=== PATIENT | female | born 1955 | race Caucasian/White ===

== ENCOUNTER 2019-07-01 10:10 | Emergency (ER) | payer MEDICARE, SELFPAY ==
[2019-07-01 10:17] VITALS: BP 159/78; PULSE 83; RESP 16; TEMP 35.5; O2SAT 97
--- NOTE | 2019-07-01 10:32 | ED.FEMALEGU ---
HPI - Female Genitourinary General Chief complaint: Urogenital-Female Stated complaint: uti Time Seen by Provider: 07/01/19 10:32 Source: patient and RN notes reviewed History of Present Illness HPI Narrative: Patient is a 63-year-old female presents the urgent care with complaints of a possible UTI. Patient states her symptoms of dysuria, frequency, urgency started approximately 3 days ago. Patient states that she has been increasing her water intake and taking ibuprofen. Patient denies of any fevers, nausea, vomiting. States that she has had some suprapubic pressure. No other acute complaints. No acute distress noted. Patient read the plan of care. Related Data Home Medications Medication Instructions Recorded Confirmed buspirone 5 mg PO BID 03/10/19 07/01/19 escitalopram oxalate 10 mg PO DAILY 03/10/19 07/01/19 insulin glargine [Lantus Solostar 20 unit SUBCUT BID 03/10/19 07/01/19 U-100 Insulin] lovastatin 20 mg PO DAILY 03/10/19 07/01/19 metformin 1,000 mg PO BID 03/10/19 07/01/19 metoprolol tartrate 100 mg PO Q12H 03/10/19 07/01/19 Allergies Allergy/AdvReac Type Severity Reaction Status Date / Time vancomycin Allergy Intermediate Hives / Verified 07/01/19 10:33 Red Face iodine Allergy Unknown Rash Verified 07/01/19 10:33 Review of Systems Review of Systems: Narrative: CONSTITUTIONAL: Denies fever, chills, or sweats. EYES: Denies visual changes, redness, or discharge. ENT: Denies rhinorrhea, congestion, sore throat, or otalgia. CARDIOVASCULAR: Denies chest pain, palpitations, or edema. RESPIRATORY: Denies cough or dyspnea. GASTROINTESTINAL: Denies abdominal pain, nausea, vomiting, or diarrhea. GENITOURINARY: Reports of frequency, urgency, dysuria and suprapubic pressure SKIN: Denies rash or itching. MUSCULOSKELETAL: Denies back pain, joint pain, or myalgia. NEUROLOGIC: Denies headache, numbness, or weakness. All other systems reviewed are negative, except as documented in HPI. PMFSH Comments At the time of my signature, I reviewed and agree with the nursing past medical, surgical, social, and family history. There is no relevant family history pertinent to the patient complaint. Exam Narrative: Exam Narrative: GENERAL: This is a well-nourished, well-developed patient, in no apparent distress. HEAD: normocephalic, atraumatic. EYES: PERRL. Sclera clear/white. Vision is grossly intact. EARS: External ears normal NOSE: External nose normal with no obvious nasal discharge THROAT: Mucous membranes moist NECK: Neck supple CARDIOVASCULAR: Regular rate and rhythm without murmurs, gallops, or rubs. RESPIRATORY: Clear to auscultation. Breath sounds equal bilaterally. No wheezes, rales, or rhonchi. GASTROINTESTINAL: Abdomen soft, mild suprapubic pressure/tenderness, nondistended. SKIN: warm, intact with no suspicious lesions or rash, good texture and turgor. NEURO: awake, alert, and oriented to person, place and time. There were no obvious focal neurologic abnormalities. EXTREMITIES: No clubbing, cyanosis, or edema. BACK: Mild bilateral CVA tenderness Course Vital Signs Vital signs: Vital Signs Temperature 96 F L 07/01/19 10:17 Pulse Rate 83 07/01/19 10:17 Respiratory Rate 16 07/01/19 10:17 Blood Pressure 159/78 H 07/01/19 10:17 Pulse Oximetry 97 07/01/19 10:17 Temperature 96 F L 07/01/19 10:17 Pulse Rate 83 07/01/19 10:17 Respiratory Rate 16 07/01/19 10:17 Blood Pressure 159/78 H 07/01/19 10:17 Pulse Oximetry 97 07/01/19 10:17 Reviewed?patient is informed that they may have pre-hypertension or hypertension based on a blood pressure reading in the department. I recommend the patient call the primary care provider listed on their discharge instructions or a physician of their choice this week to arrange follow-up for further evaluation of possible pre-hypertension or hypertension. MDM - Female Genitourinary MDM Narrative Medical decision making narrative: Reviewed lab
== END 2019-07-01 10:50 | disposition home or self-care (01) ==
PROVIDERS: Emergency Provider Nurse Practitioner Family; PCP Family Medicine
DX: N39.0 Urinary tract infection, site not specified (principal); I10 Essential (primary) hypertension; K21.9 Gastro-esophageal reflux disease without esophagitis; E11.9 Type 2 diabetes mellitus without complications; F41.9 Anxiety disorder, unspecified; F32.9 Major depressive disorder, single episode, unspecified
CPT/HCPCS: 81003; 87086; 87088; 99213; G0463

== ENCOUNTER 2019-10-20 13:42 | Emergency (ER) | payer MEDICARE, SELFPAY ==
--- NOTE | 2019-10-20 13:52 | ED.FEMALEGU ---
HPI - Female Genitourinary General Chief complaint: Urogenital-Female Stated complaint: uti Time Seen by Provider: 10/20/19 13:52 Source: patient and RN notes reviewed History of Present Illness HPI Narrative: Patient is 64-year-old female who presents the urgent care with complaints of dysuria, urgency, frequency, suprapubic pressure and right flank pain. Patient states that her symptoms started approximately 1 week ago and she does have a history of kidney stones and stent placement. Patient states that she is supposed to be following up with urologist but is waiting on her primary care doctors referral. Patient denies of any known blood in the urine, fever, nausea, vomiting. States that she has used Azo with mild improvements. Patient was seen in our facility in June with the exact same symptoms, and urine culture was negative at that time. No other acute complaints. No acute distress noted. Patient read the plan of care. Related Data Home Medications Medication Instructions Recorded Confirmed buspirone 5 mg PO BID 03/10/19 07/01/19 escitalopram oxalate 10 mg PO DAILY 03/10/19 07/01/19 insulin glargine [Lantus Solostar 20 unit SUBCUT BID 03/10/19 07/01/19 U-100 Insulin] lovastatin 20 mg PO DAILY 03/10/19 07/01/19 metformin 1,000 mg PO BID 03/10/19 07/01/19 metoprolol tartrate 100 mg PO Q12H 03/10/19 07/01/19 Allergies Allergy/AdvReac Type Severity Reaction Status Date / Time vancomycin Allergy Intermediate Hives / Verified 10/20/19 14:01 Red Face iodine Allergy Unknown Rash Verified 10/20/19 14:01 Review of Systems Review of Systems: Narrative: CONSTITUTIONAL: Denies fever, chills, or sweats. EYES: Denies visual changes, redness, or discharge. ENT: Denies rhinorrhea, congestion, sore throat, or otalgia. CARDIOVASCULAR: Denies chest pain, palpitations, or edema. RESPIRATORY: Denies cough or dyspnea. GASTROINTESTINAL: Denies abdominal pain, nausea, vomiting, or diarrhea. GENITOURINARY: Reports of urgency, frequency, dysuria, suprapubic pressure SKIN: Denies rash or itching. MUSCULOSKELETAL: Reports of right flank pain NEUROLOGIC: Denies headache, numbness, or weakness. All other systems reviewed are negative, except as documented in HPI. PMFSH Comments At the time of my signature, I reviewed and agree with the nursing past medical, surgical, social, and family history. There is no relevant family history pertinent to the patient complaint. Exam Narrative: Exam Narrative: GENERAL: This is a well-nourished, well-developed patient, in no apparent distress. HEAD: normocephalic, atraumatic. EYES: PERRL. Sclera clear/white. Vision is grossly intact. EARS: External ears normal NOSE: External nose normal with no obvious nasal discharge, nares without redness, no rhinorrhea. THROAT: Mucous membranes moist NECK: Neck supple GASTROINTESTINAL: Abdomen soft, mild suprapubic tenderness/pressure, nondistended. SKIN: warm, intact with no suspicious lesions or rash, good texture and turgor. NEURO: awake, alert, and oriented to person, place and time. There were no obvious focal neurologic abnormalities. EXTREMITIES: No clubbing, cyanosis, or edema. BACK: Mild bilateral CVA tenderness Course Vital Signs Vital signs: Vital Signs Temperature 97.3 F L 10/20/19 13:55 Pulse Rate 101 H 10/20/19 13:55 Respiratory Rate 16 10/20/19 13:55 Blood Pressure 153/55 H 10/20/19 13:55 Pulse Oximetry 98 10/20/19 13:55 Temperature 97.3 F L 10/20/19 13:55 Pulse Rate 101 H 10/20/19 13:55 Respiratory Rate 16 10/20/19 13:55 Blood Pressure 153/55 H 10/20/19 13:55 Pulse Oximetry 98 10/20/19 13:55 Reviewed?patient is informed that they may have pre-hypertension or hypertension based on a blood pressure reading in the department. I recommend the patient call the primary care provider listed on their discharge instructions or a physician of their choice this week to arrange follow-up for further evaluation of p
[2019-10-20 13:55] VITALS: BP 153/55; PULSE 101; RESP 16; TEMP 36.3; O2SAT 98
== END 2019-10-20 14:25 | disposition home or self-care (01) ==
PROVIDERS: Emergency Provider Nurse Practitioner Family; PCP Family Medicine
DX: R30.0 Dysuria (principal); I10 Essential (primary) hypertension; E11.9 Type 2 diabetes mellitus without complications; Z90.711 Acquired absence of uterus with remaining cervical stump; F41.9 Anxiety disorder, unspecified; F32.9 Major depressive disorder, single episode, unspecified
CPT/HCPCS: 81003; 87077; 87086; 87088; 87186; 99213; G0463

== ENCOUNTER 2020-07-21 13:19 | Emergency (ER) | payer MEDICARE, SELFPAY ==
[2020-07-21 13:46] VITALS: BP 159/64; PULSE 84; RESP 20; TEMP 36.2; O2SAT 96
--- NOTE | 2020-07-21 14:22 | ED.FEMALEGU ---
HPI - Female Genitourinary General Chief complaint: Urogenital-Female Stated complaint: Poss UTI Time Seen by Provider: 07/21/20 14:14 Source: patient and RN notes reviewed Mode of arrival: ambulatory Limitations: no limitations History of Present Illness HPI Narrative: Patient presents today complaining of a 3 to 4-day history of lower abdominal discomfort, low back pain, urinary frequency, dysuria, and nausea. Denies hematuria, fever, vomiting. She has not tried any [id number] treatment prior to arrival. No recent antibiotic use. MD elicited complaint: dysuria Related Data Home Medications Medication Instructions Recorded Confirmed buspirone 5 mg PO DAILY 03/10/19 10/20/19 escitalopram oxalate 10 mg PO DAILY 03/10/19 07/21/20 insulin glargine [Lantus Solostar 20 unit SUBCUT BID 03/10/19 07/21/20 U-100 Insulin] lovastatin 20 mg PO DAILY 03/10/19 07/21/20 metformin 1,000 mg PO BID 03/10/19 07/21/20 metoprolol tartrate 100 mg PO Q12H 03/10/19 07/21/20 Allergies Allergy/AdvReac Type Severity Reaction Status Date / Time vancomycin Allergy Intermediate Hives / Verified 07/21/20 14:23 Red Face iodine Allergy Unknown Rash Verified 07/21/20 14:23 nitrofurantoin AdvReac Diarrhea Verified 07/21/20 14:23 [From Macrobid] Review of Systems Review of Systems: Narrative: CONSTITUTIONAL: Denies body aches, fever, chills, or sweats. EYES: Denies visual changes, redness, or discharge. ENT: Denies rhinorrhea, congestion, sore throat, or otalgia. CARDIOVASCULAR: Denies chest pain, palpitations, or edema. RESPIRATORY: Denies cough or dyspnea. GASTROINTESTINAL: Denies abdominal pain, vomiting, or diarrhea.+ Nausea GENITOURINARY: + Dysuria, frequency, lower abdominal discomfort SKIN: Denies rash, itching, or wounds. MUSCULOSKELETAL: Denies joint pain, or myalgia. + Low back pain NEUROLOGIC: Denies headache, numbness, tingling, or weakness. PSYCH: Denies depression or anxiety. FORMERLY [facility] Past Medical History Medical History (Updated 07/21/20 @ 14:28 by Leydi Arriola, [employer], ) Anxiety Depression Diabetes GERD (gastroesophageal reflux disease) Kidney stones Tachycardia Surgical History Surgical History (Updated 07/21/20 @ 14:26 by CHERYL Wynn, ) History of cholecystectomy History of partial hysterectomy Hx of tonsillectomy Comments At time of signature, I have reviewed and agree with nursing past medical, surgical, social and family history unless otherwise noted. Please see nursing chart for further information. There is no relevant family history pertinent to the presenting complaint Exam Narrative: Exam Narrative: GENERAL: Well-appearing, well-nourished, and in no acute distress. HEAD: Normocephalic, atraumatic. EYES: EOMI. No redness or drainage. Conjunctivae normal. ENT: Mucous membranes pink and moist. NECK: Normal AROM. CHEST: No respiratory distress. Clear to auscultation. HEART: Regular rate and rhythm. No murmur appreciated. Normal peripheral pulses. ABDOMEN: Soft, nondistended, normal active bowel sounds. + Suprapubic tenderness MUSCULOSKELETAL: No bony tenderness. EXTREMITIES: Normal range of motion. No edema. SKIN: Warm, dry, no rash. Capillary refill normal. Normal skin turgor. NEURO: No focal deficits. Alert and oriented x3. Gait steady. PSYCH: Normal affect. No signs of depression or anxiety. Course Vital Signs Vital signs: Vital Signs Temperature 97.2 F L 07/21/20 13:46 Pulse Rate 84 07/21/20 13:46 Respiratory Rate 20 07/21/20 13:46 Blood Pressure 159/64 H 07/21/20 13:46 Pulse Oximetry 96 07/21/20 13:46 Temperature 97.2 F L 07/21/20 13:46 Pulse Rate 84 07/21/20 13:46 Respiratory Rate 20 07/21/20 13:46 Blood Pressure 159/64 H 07/21/20 13:46 Pulse Oximetry 96 07/21/20 13:46 Reviewed. Pt has been instructed to follow up with her PCP regarding her elevated blood pressure today. MDM - Female Genitourinary Differentia
== END 2020-07-21 14:39 | disposition home or self-care (01) ==
PROVIDERS: Emergency Provider Nurse Practitioner; PCP Family Medicine
DX: N30.01 Acute cystitis with hematuria (principal); B96.20 Unspecified Escherichia coli [E. coli] as the cause of diseases classified elsewhere; F32.9 Major depressive disorder, single episode, unspecified; F41.9 Anxiety disorder, unspecified; E11.9 Type 2 diabetes mellitus without complications; K21.9 Gastro-esophageal reflux disease without esophagitis; Z90.711 Acquired absence of uterus with remaining cervical stump
CPT/HCPCS: 81003; 87077; 87086; 87088; 87186; 99213; G0463

== ENCOUNTER 2020-09-14 13:58 | Emergency (ER) | payer MEDICARE, SELFPAY ==
--- NOTE | 2020-09-14 14:02 | ED.FEMALEGU ---
HPI - Female Genitourinary General Chief complaint: Urogenital-Female Stated complaint: Possiblel UTI/Pain in right Arm and Shoulder Time Seen by Provider: 09/14/20 14:02 Source: patient and RN notes reviewed History of Present Illness HPI Narrative: Patient is a 64-year-old female who presents the urgent care with complaints of a recurring UTI. Patient states symptoms have been ongoing for the last 2 to 3 days with burning with urination, urinary frequency, urgency and suprapubic pressure. Patient states she all over just does not feel well . Patient had a UTI in July was placed on Keflex and then changed to Bactrim due to a culture results. Patient states she never thinks it fully went away after the medication . Patient denies of any fevers, abdominal pain, vomiting. Also reports of some chronic right arm pain after a fall. Patient is followed up with an orthopedic and has had an MRI and is currently on naproxen for the pain. Patient states she will follow up with her orthopedic regarding her chronic pain and wants to be seen for her UTI . No other acute complaints. No acute distress noted. Patient aware of the plan of care. Some parts of this dictation were generated by voice recognition software and may contain typographical and/or grammatical inaccuracies. Related Data Home Medications Medication Instructions Recorded Confirmed buspirone 5 mg PO DAILY 03/10/19 09/14/20 escitalopram oxalate 10 mg PO DAILY 03/10/19 09/14/20 insulin glargine [Lantus Solostar 20 unit SUBCUT BID 03/10/19 09/14/20 U-100 Insulin] lovastatin 20 mg PO DAILY 03/10/19 09/14/20 metformin 1,000 mg PO BID 03/10/19 09/14/20 metoprolol tartrate 100 mg PO Q12H 03/10/19 09/14/20 Allergies Allergy/AdvReac Type Severity Reaction Status Date / Time vancomycin Allergy Intermediate Hives / Verified 09/14/20 14:13 Red Face iodine Allergy Unknown Rash Verified 09/14/20 14:13 nitrofurantoin AdvReac Diarrhea Verified 09/14/20 14:13 [From Macrobid] Review of Systems Review of Systems: Narrative: CONSTITUTIONAL: Denies fever, chills, or sweats. EYES: Denies visual changes, redness, or discharge. ENT: Denies rhinorrhea, congestion, sore throat, or otalgia. CARDIOVASCULAR: Denies chest pain, palpitations, or edema. RESPIRATORY: Denies cough or dyspnea. GASTROINTESTINAL: Denies abdominal pain, nausea, vomiting, or diarrhea. GENITOURINARY: Reports of dysuria, urinary frequency, urgency, suprapubic pressure SKIN: Denies rash or itching. MUSCULOSKELETAL: Denies back pain, joint pain NEUROLOGIC: Denies headache, numbness, or weakness. All other systems reviewed are negative, except as documented in HPI. [facility] Past Medical History Medical History (Updated 09/14/20 @ 14:30 by VALDO SilverP) Anxiety Depression Diabetes GERD (gastroesophageal reflux disease) Kidney stones Tachycardia Surgical History Surgical History (Updated 07/21/20 @ 14:26 by Leydi Arriola, CHERYL, ) History of cholecystectomy History of partial hysterectomy Hx of tonsillectomy Comments At the time of my signature, I reviewed and agree with the nursing past medical, surgical, social, and family history. There is no relevant family history pertinent to the patient complaint. Exam Narrative: Exam Narrative: GENERAL: This is a well-nourished, well-developed patient, in no apparent distress. HEAD: normocephalic, atraumatic. EYES: PERRL. Sclera clear/white. Vision is grossly intact. EARS: External ears normal NOSE: External nose normal with no obvious nasal discharge, nares without redness, no rhinorrhea. THROAT: Mucous membranes moist NECK: Neck supple CARDIOVASCULAR: Regular rate and rhythm without murmurs, gallops, or rubs. RESPIRATORY: Clear to auscultation. Breath sounds equal bilaterally. No wheezes, rales, or rhonchi. SKIN: warm, intact with no suspicious lesions or rash, good texture and turgor. NEURO: awake, alert, and oriented to person, francisca
[2020-09-14 14:05] VITALS: BP 172/63; PULSE 95; RESP 16; TEMP 36.7; O2SAT 97
[2020-09-14 14:14] VITALS: BP 172/63; PULSE 95; RESP 16; TEMP 36.7; O2SAT 97
== END 2020-09-14 14:39 | disposition home or self-care (01) ==
PROVIDERS: Emergency Provider Nurse Practitioner Family; PCP Family Medicine
DX: N39.0 Urinary tract infection, site not specified (principal); F41.9 Anxiety disorder, unspecified; F32.9 Major depressive disorder, single episode, unspecified; E11.9 Type 2 diabetes mellitus without complications; K21.9 Gastro-esophageal reflux disease without esophagitis; Z87.442 Personal history of urinary calculi; Z79.4 Long term (current) use of insulin; R03.0 Elevated blood-pressure reading, without diagnosis of hypertension
CPT/HCPCS: 81003; 87077; 87086; 87088; 87186; 99213; G0463

== ENCOUNTER 2021-02-28 08:55 | Emergency (ER) | payer MEDICARE, SELFPAY ==
[2021-02-28 09:00] VITALS: BP 152/56; PULSE 90; RESP 20; TEMP 36.6; O2SAT 96
--- NOTE | 2021-02-28 09:19 | ED.FEMALEGU ---
HPI - Female Genitourinary General Chief complaint: Urogenital-Female Stated complaint: UTI Time Seen by Provider: 02/28/21 09:19 Source: patient, RN notes reviewed and old records reviewed Mode of arrival: ambulatory Limitations: no limitations History of Present Illness HPI Narrative: 65-year-old female presents to the [facility] with complaints of UTI. Has a history of chronic UTIs. Patient is diabetic. Was seen here couple months ago. Patient states that she has an appointment with her primary care provider and is requesting a referral to a urologist for the chronic UTIs. Her primary care appointment is March 09 per patient. MD elicited complaint: UTI Related Data Home Medications Medication Instructions Recorded Confirmed buspirone 5 mg PO DAILY 03/10/19 02/28/21 escitalopram oxalate 10 mg PO DAILY 03/10/19 02/28/21 insulin glargine [Lantus Solostar 20 unit SUBCUT BID 03/10/19 02/28/21 U-100 Insulin] lovastatin 20 mg PO DAILY 03/10/19 02/28/21 metformin 1,000 mg PO BID 03/10/19 02/28/21 metoprolol tartrate 100 mg PO Q12H 03/10/19 02/28/21 Allergies Allergy/AdvReac Type Severity Reaction Status Date / Time vancomycin Allergy Intermediate Hives / Verified 02/28/21 09:26 Red Face iodine Allergy Unknown Rash Verified 02/28/21 09:26 nitrofurantoin AdvReac Diarrhea Verified 02/28/21 09:26 [From Macrobid] Review of Systems Constitutional: Constitutional: Reports as per HPI Eyes: Eyes: Reports no additional eye complaints ENT: Reports system reviewed and no additional complaints, except as documented Cardiovascular: Cardiovascular: Reports no additional cardiovascular complaints Respiratory: Respiratory: Reports no additional respiratory complaints Gastrointestinal: Gastrointestinal: Reports no additional gastrointestinal complaints, Denies abdominal pain, Denies diarrhea, Denies nausea and Denies vomiting Genitourinary: Genitourinary: Reports as per HPI, Reports nocturia, Reports dysuria, Denies flank pain and Denies urinary incontinence Musculoskeletal: Musculoskeletal: Reports no additional musculoskeletal complaints Integumentary/Breasts: Skin/Breast: Reports system reviewed and no additional complaints, except as docu Neurologic: Reports system reviewed and no additional complaints, except as documented Psychiatric: Psychiatric: Reports no additional psychiatric complaints Allergic/Immunologic: Allergic/Immunologic: Reports no additional allergic/immunologic complaints [facility] Past Medical History Medical History (Updated 02/28/21 @ 09:28 by Roshni Mason) Anxiety Chronic UTI Depression Diabetes GERD (gastroesophageal reflux disease) Kidney stones Tachycardia Surgical History Surgical History History of cholecystectomy History of partial hysterectomy Hx of tonsillectomy Social History Social History (Updated 02/28/21 @ 09:25 by Roshni Mason) Gender identity (if verbalized by the patient): Female Comments At the time of my signature, I reviewed and agree with the nursing past medical, surgical, social, and family history. There is no relevant family history pertinent to the patient complaint. Exam Const: General: healthy appearing, no acute distress and alert Nutritional Appearance: obese morbidly obese Orientation/consciousness: patient oriented x3 HENMT: Head: normal to inspection Eyes: Pupils: Equal, round and reactive pupils present Neck: Neck: normal visual inspection, no lymphadenopathy and no meningeal signs Chest: Chest palpation & inspection: normal inspection of the chest Resp: Effort & Inspection: normal respiratory effort Auscultation: clear to auscultation bilaterally Cardio: Rate: regular rate Rhythm: regular rhythm GI: GI Palp: Yes Soft to palpation and No Tenderness to palpation present (GI) : General: Yes no CVA tenderness Back/Spine/Pelvis: Back: no CVA tenderness Back/spin
== END 2021-02-28 09:30 | disposition home or self-care (01) ==
PROVIDERS: Emergency Provider Nurse Practitioner; PCP Family Medicine
DX: N00.1 Acute nephritic syndrome with focal and segmental glomerular lesions (principal); E11.9 Type 2 diabetes mellitus without complications; K21.9 Gastro-esophageal reflux disease without esophagitis; F41.9 Anxiety disorder, unspecified; F32.9 Major depressive disorder, single episode, unspecified; Z79.4 Long term (current) use of insulin; Z79.84 Long term (current) use of oral hypoglycemic drugs; Z90.711 Acquired absence of uterus with remaining cervical stump
CPT/HCPCS: 81003; 87077; 87086; 87186; 99213; G0463

== ENCOUNTER 2021-12-12 10:54 | Emergency (ER) | payer MEDICARE, SELFPAY ==
[2021-12-12 11:06] VITALS: BP 168/74; PULSE 84; RESP 20; TEMP 36.4; O2SAT 97
[2021-12-12 11:45] LABS: Glucose Point of Care > 500 mg/dl (65-105)
--- NOTE | 2021-12-12 11:48 | ED.FEMALEGU ---
HPI - Female Genitourinary General Chief complaint: Urogenital-Female Stated complaint: possible uti, internal back pains Time Seen by Provider: 12/12/21 11:18 Source: patient, RN notes reviewed and old records reviewed Mode of arrival: ambulatory Limitations: no limitations History of Present Illness HPI Narrative: 66 year old female who presents to [facility] care with one week history of burning with urination, left flank pain, supra pubic pressure, urgency and frequency. Patient reports history of urinary tract infections, kidney stones and also urinary sepsis in the past. Patient is afebrile with no nausea or vomiting stated. Patient is known diabetic,does not check her blood sugar at home routinely,blood sugar 505 per finger stick glucose in clinic today with urine positive for blood, nitrates, protein and leukocytes and positive also for nitrates. MD elicited complaint: dysuria, UTI and other Pertinent past history: diabetes and other (kidney stone and urinary sepsis) Severity scale (1-10): 8 Related Data Home Medications Medication Instructions Recorded Confirmed buspirone 5 mg tablet 5 mg PO DAILY 03/10/19 12/12/21 escitalopram oxalate 20 mg tablet 10 mg PO DAILY 03/10/19 12/12/21 insulin glargine 100 unit/mL (3 20 unit subcut BID 03/10/19 12/12/21 mL) subcutaneous pen (Lantus Solostar U-100 Insulin) lovastatin 20 mg tablet 20 mg PO DAILY 03/10/19 12/12/21 metoprolol tartrate 100 mg tablet 100 mg PO Q12H 03/10/19 12/12/21 linagliptin 5 mg tablet (Tradjenta) 5 mg PO QAM 12/12/21 12/12/21 Allergies Allergy/AdvReac Type Severity Reaction Status Date / Time vancomycin Allergy Intermediate Hives / Verified 12/12/21 11:16 Red Face iodine Allergy Unknown Rash Verified 12/12/21 11:16 nitrofurantoin AdvReac Diarrhea Verified 12/12/21 11:16 [From Macrobid] Review of Systems Review of Systems: CONSTITUTIONAL: Denies fever, chills, or sweats. EYES: Denies visual changes, redness, or discharge. ENT: Denies rhinorrhea, congestion, sore throat, or otalgia. CARDIOVASCULAR: Denies chest pain, palpitations, or edema. RESPIRATORY: Denies cough or dyspnea. GASTROINTESTINAL: Denies abdominal pain, nausea, vomiting, or diarrhea. GENITOURINARY: Positive for dysuria or hematuria. SKIN: Denies rash or itching. MUSCULOSKELETAL: Denies back pain, joint pain, or myalgia.left flank pain NEUROLOGIC: Denies headache, numbness, or weakness. PSYCHIATRIC: Positive for anxiety or depression. All systems reviewed & are unremarkable except as noted in HPI and below PMFSH Past Medical History Medical History Anxiety Chronic UTI Depression Diabetes GERD (gastroesophageal reflux disease) Kidney stones Tachycardia Surgical History Surgical History History of cholecystectomy History of partial hysterectomy Hx of tonsillectomy Social History Social History (Updated 12/15/21 @ 11:22 by Bianca Ramos NP) Smoking status: Never smoker Alcohol intake: unknown Substance use type: does not use Living arrangements: alone Gender identity (if verbalized by the patient): Female Comments At time of signature, agree with nursing past medical, surgical, social and family history. There is no relevant family history pertinent to the presenting complaint Exam Narrative: GENERAL: ill-appearing, well-nourished, and in no acute distress. HEAD: Normocephalic, atraumatic. EYES: PERRLA and EOMI. ENT: Nares clear, no rhinorrhea or epistaxis. Mucous membranes moist.TM's normal with good light reflex, throat pink no tonsils present NECK: Supple.no lymphadenopathy CHEST: Clear to auscultation. No respiratory distress.SAO2 97% on room air HEART: Regular rate and rhythm. No murmur heard. Normal peripheral pulses. ABDOMEN: Soft, suprapubic pressure, nondistended, normal active bowel sounds.positive for CVA tenderness left flan
== END 2021-12-12 12:04 | disposition short-term general hospital (02) ==
PROVIDERS: Emergency Provider Registered Nurse; PCP Family Medicine
DX: E11.65 Type 2 diabetes mellitus with hyperglycemia (principal); R82.4 Acetonuria; N39.0 Urinary tract infection, site not specified; K21.9 Gastro-esophageal reflux disease without esophagitis; F41.9 Anxiety disorder, unspecified; F32.A Depression, unspecified; Z79.4 Long term (current) use of insulin
CPT/HCPCS: 81003; 82948; 87077; 87086; 87186; 99213; G0463

== ENCOUNTER 2023-02-15 12:12 | Emergency (ER) | payer MEDICARE, SELFPAY ==
[2023-02-15 12:18] VITALS: BP 149/71; PULSE 98; RESP 18; TEMP 36.3; O2SAT 96
--- NOTE | 2023-02-15 12:28 | ED.EYEPROB ---
HPI - Eye Problem General Stated complaint: Left Eye Irritation Source: patient and RN notes reviewed History of Present Illness HPI Narrative: 67 yo F presents to urgent care with complaints of left eye pain, redness, and swelling x 2 days. Pt states she woke up and noticed a small bump to her left lower, outer, lid. Pt reports pain to her entire left orbital area. Pt reports blurry vision. Denies any fever, chills, chest pain, or SOB. Related Data Home Medications Medication Instructions Recorded Confirmed buspirone 5 mg tablet 5 mg PO TID 03/10/19 02/15/23 escitalopram oxalate 20 mg tablet 10 mg PO DAILY 03/10/19 02/15/23 insulin glargine 100 unit/mL (3 20 unit subcut DAILY 03/10/19 02/15/23 mL) subcutaneous pen (Lantus Solostar U-100 Insulin) lovastatin 20 mg tablet 20 mg PO DAILY 03/10/19 02/15/23 metoprolol tartrate 100 mg tablet 100 mg PO Q12H 03/10/19 02/15/23 insulin lispro 100 unit/mL See Rx Instructions .Route .COMPLEX 02/15/23 02/15/23 subcutaneous pen (Humalog KwikPen (U-100) Insulin) sitagliptin phosphate 100 mg 100 mg PO DAILY 02/15/23 02/15/23 tablet (Januvia) Allergies Allergy/AdvReac Type Severity Reaction Status Date / Time vancomycin Allergy Intermediate Hives / Verified 02/15/23 12:32 Red Face iodine Allergy Unknown Rash Verified 02/15/23 12:32 nitrofurantoin AdvReac Diarrhea Verified 02/15/23 12:32 [From Macrobid] Review of Systems Review of Systems: CONSTITUTIONAL: Denies fever, chills, or sweats. EYES: Left eye redness, swelling, pain, and blurred vision ENT: Denies otalgia and sore throat CARDIOVASCULAR: Denies chest pain, palpitations, or edema. RESPIRATORY: Denies cough or dyspnea. GASTROINTESTINAL: Denies abdominal pain, nausea, vomiting, or diarrhea. GENITOURINARY: Denies dysuria or hematuria. SKIN: Denies rash or itching. MUSCULOSKELETAL: Denies back pain, joint pain, or myalgia. NEUROLOGIC: Denies headache, numbness, or weakness. Pertinent positives per HPI. [facility] Past Medical History Medical History Anxiety Chronic UTI Depression Diabetes GERD (gastroesophageal reflux disease) Kidney stones Tachycardia Surgical History Surgical History History of cholecystectomy History of partial hysterectomy Hx of tonsillectomy Social History Social History (Updated 12/15/21 @ 11:22 by Bianca Ramos NP) Smoking status: Never smoker Alcohol intake: unknown Substance use type: does not use Living arrangements: alone Gender identity (if verbalized by the patient): Female Comments At the time of my signature, I reviewed and agree with the nursing past medical, surgical, social, and family history. There is no relevant family history pertinent to the patient complaint. Exam Narrative: GENERAL: This is a well-nourished, well-developed patient, in no apparent distress. HEAD: normocephalic, atraumatic. EYES: Left lower conjunctiva injected. Left lower lid edematous with edema and erythema to left lower orbit. Pain with EOM. Clear drainage noted. 0.5 cm abscess noted to left, outer, mid lower lid. EARS: External ears normal, auditory canals clear and without drainage. Hearing grossly intact. NOSE: External nose normal with no obvious nasal discharge, nares without redness, no rhinorrhea. THROAT: Mucous membranes moist, posterior pharynx clear. NECK: Neck supple, non-tender without lymphadenopathy, masses or thyromegaly. CARDIOVASCULAR: Regular rate RESPIRATORY: No respiratory distress SKIN: warm, intact with no suspicious lesions or rash, good texture and turgor. NEURO: awake, alert, and oriented to person, place and time. There were no obvious focal neurologic abnormalities. Course Course Level of Care: Express Care Visit Vital Signs Vital signs: Vital Signs Temperature 97.3 F L 02/15/23 12:18 Pulse Rate
== END 2023-02-15 12:45 | disposition short-term general hospital (02) ==
PROVIDERS: Emergency Provider Nurse Practitioner Family; PCP Family Medicine
DX: H05.012 Cellulitis of left orbit (principal); E11.9 Type 2 diabetes mellitus without complications; Z79.4 Long term (current) use of insulin; K21.9 Gastro-esophageal reflux disease without esophagitis; F41.9 Anxiety disorder, unspecified; F32.A Depression, unspecified
CPT/HCPCS: 99212; G0463

== ENCOUNTER 2023-05-12 12:03 | Emergency (ER) | payer MEDICARE, SELFPAY ==
[2023-05-12 12:09] VITALS: BP 170/57; PULSE 104; RESP 16; TEMP 36.6; O2SAT 96
--- NOTE | 2023-05-12 13:29 | ED.FEMALEGU ---
HPI - Female Genitourinary General Chief complaint: Urogenital-Female Stated complaint: Urinary Problem Time Seen by Provider: 05/12/23 13:20 Source: patient, RN notes reviewed and old records reviewed Mode of arrival: ambulatory Limitations: no limitations History of Present Illness HPI Narrative: 67 year old female who presents to express care with complaints of urinary tract symptoms which started yesterday with increase in her symptoms last night. Patient reports she has had urgency and frequency of urination has noted some blood in her urine she has had some nausea no vomiting and has had fevers. Patient reports that she has some bilateral flank pain also suprapubic discomfort. Patient denies any vaginal disccharge or any itching. Patient is diabetic and is showing glucose in her urine patient reports that she has not eaten yet today and has not taken any insulin. MD elicited complaint: dysuria and UTI Pertinent past history: recurrent UTIs and diabetes Onset (ago): day(s) (day 2) Vaginal discharge: none Related Data Home Medications Medication Instructions Recorded Confirmed buspirone 5 mg tablet 5 mg PO TID 03/10/19 02/15/23 escitalopram oxalate 20 mg tablet 10 mg PO DAILY 03/10/19 02/15/23 insulin glargine 100 unit/mL (3 20 unit subcut DAILY 03/10/19 02/15/23 mL) subcutaneous pen (Lantus Solostar U-100 Insulin) lovastatin 20 mg tablet 20 mg PO DAILY 03/10/19 02/15/23 metoprolol tartrate 100 mg tablet 100 mg PO Q12H 03/10/19 02/15/23 insulin lispro 100 unit/mL See Rx Instructions .Route .COMPLEX 02/15/23 02/15/23 subcutaneous pen (Humalog KwikPen (U-100) Insulin) sitagliptin phosphate 100 mg 100 mg PO DAILY 02/15/23 02/15/23 tablet (Januvia) ergocalciferol (vitamin D2) 1,250 05/12/23 05/12/23 mcg (50,000 unit) capsule (Vitamin D2) Allergies Allergy/AdvReac Type Severity Reaction Status Date / Time vancomycin Allergy Intermediate Hives / Verified 05/12/23 12:17 Red Face iodine Allergy Unknown Rash Verified 05/12/23 12:17 nitrofurantoin AdvReac Diarrhea Verified 02/04/24 12:17 [From Macrobid] Review of Systems Review of Systems: CONSTITUTIONAL: Denies fever, chills, or sweats. CARDIOVASCULAR: Denies chest pain, palpitations, or edema. RESPIRATORY: Denies cough or dyspnea. GASTROINTESTINAL:Reports suprapubic abdominal pain, nausea,no vomiting, or diarrhea. GENITOURINARY: Reports dysuria, frequency, urgency. Reports flank pain or hematuria. SKIN: Denies rash or itching. MUSCULOSKELETAL: Denies back pain or myalgia. Reports CVA tenderness NEUROLOGIC: Denies headache All systems reviewed & are unremarkable except as noted in HPI and below PMFSH Past Medical History Medical History Anxiety Chronic UTI Depression Diabetes GERD (gastroesophageal reflux disease) Kidney stones Tachycardia Surgical History Surgical History History of cholecystectomy History of partial hysterectomy Hx of tonsillectomy Social History Social History (Updated 12/15/21 @ 11:22 by Biacna Ramos NP) Smoking status: Never smoker Alcohol intake: unknown Substance use type: does not use Living arrangements: alone Gender identity (if verbalized by the patient): Female Comments At time of signature, agree with nursing past medical, surgical, social and family history. There is no relevant family history pertinent to the presenting complaint Exam Narrative: GENERAL: Well-appearing, well-nourished, and in no acute distress. HEAD: Normocephalic, atraumatic. NECK: Supple.no lymphadenopathy CHEST: Clear to auscultation. No respiratory distress.SAO2 96% on room air HEART: Regular rate and rhythm. No murmur heard. Normal peripheral pulses. ABDOMEN: Soft, suprapubic tender, nondistended, normal active bowel sounds. Positive CVA tenderness, dysuria, urgency and frequency of u
== END 2023-05-12 13:48 | disposition home or self-care (01) ==
PROVIDERS: Emergency Provider Registered Nurse; PCP Family Medicine
DX: N39.0 Urinary tract infection, site not specified (principal); B96.20 Unspecified Escherichia coli [E. coli] as the cause of diseases classified elsewhere; E11.9 Type 2 diabetes mellitus without complications; K21.9 Gastro-esophageal reflux disease without esophagitis; Z90.711 Acquired absence of uterus with remaining cervical stump; F41.9 Anxiety disorder, unspecified; F32.A Depression, unspecified
CPT/HCPCS: 81003; 87077; 87086; 87186; 99213; G0463